=== PATIENT | female | born 1995 | race American Indian/Alaskan Native ===

== ENCOUNTER 2022-01-08 19:29 | Emergency (ER) | payer OTHER ==
[2022-01-08 19:43] VITALS: BP 117/59
== END 2022-01-08 20:55 | disposition left against medical advice (07) ==
LOC: ED 19:29
DX: Z04.1 Encounter for examination and observation following transport accident (principal); Z53.21 Procedure and treatment not carried out due to patient leaving prior to being seen by health care provider; V87.7XXA Person injured in collision between other specified motor vehicles (traffic), initial encounter; Y93.89 Activity, other specified; Y92.488 Other paved roadways as the place of occurrence of the external cause; Y99.8 Other external cause status

== ENCOUNTER 2022-01-13 08:33 | Emergency (ER) | payer OTHER ==
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
[2022-01-13] MEDS ORDERED: ACETAMINOPHEN 500 MG TAB PO ONE (12:05)
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
[2022-01-13 12:47] VITALS: BP 118/68
== END 2022-01-13 12:47 | disposition home or self-care (01) ==
LOC: ED 08:33
DX: M54.9 Dorsalgia, unspecified (principal); V87.7XXA Person injured in collision between other specified motor vehicles (traffic), initial encounter; Y93.89 Activity, other specified; Y92.488 Other paved roadways as the place of occurrence of the external cause; Y99.8 Other external cause status
CPT/HCPCS: 72100; 99283

== ENCOUNTER 2022-01-17 21:15 | Emergency (ER) | payer OTHER ==
[2022-01-17 21:45] VITALS: BP 95/54
[2022-01-18] MEDS ORDERED: dexAMETHasone 4 MG/ML VIAL PO ONE (07:50)
--- NOTE | 2022-01-18 08:47 | Emergency Department Report ---
ED Shortness of Breath HPI - General Chief Complaint: Dyspnea/Respdistress Stated Complaint: SOB Time Seen by Provider: 01/18/22 07:39 Source: patient Mode of arrival: Ambulatory Limitations: No Limitations - History of Present Illness Initial Comments: 26-year-old black female with no past medical history presents to the emergency department for evaluation of 2-week history of intermittent shortness of breath. She states that during the day she will just all of a sudden have shortness of breath unprovoked by anything that she can determine and then at night she feels short more shortness of breath that at times awakes her out of her sleep. She states that it also feels funny when she is trying to breathe out of her nose. She states over the past few days she has noted that sometimes she will have shortness of breath and feel like her heart is palpitating when she walks up and down stairs. She denies chest pain, nausea, vomiting, dizziness, dysuria, diaphoresis, and fever. She states that she has had persistent runny nose and it feels like she is swallowing something in the back of her throat all the time. MD Complaint: shortness of breath -: Gradual, week(s) (2) Worsens With: lying flat, other (Walking upstairs) Associated Symptoms: cough Treatments Prior to Arrival: none - Related Data Home Oxygen Therapy: No Previous Rx's Medication Instructions Recorded Last Taken Type Cyclobenzaprine [Flexeril] 10 mg PO TID PRN #10 tablet 01/13/22 Unknown Rx Ibuprofen [Motrin] 800 mg PO Q8HR PRN #30 tablet 01/13/22 Unknown Rx Allergies Allergy/AdvReac Type Severity Reaction Status Date / Time No Known Allergies Allergy Verified 01/08/22 19:45 ED Review of Systems ROS: Stated complaint: SOB Other details as noted in HPI Comment: All other systems reviewed and negative Constitutional: denies: chills, fever, malaise, weakness ENT: congestion Respiratory: cough, shortness of breath, SOB with exertion, SOB at rest. denies: orthopnea, stridor, wheezing Cardiovascular: palpitations, dyspnea on exertion. denies: chest pain, orthopnea, edema, syncope, paroxysmal nocturnal dyspnea Gastrointestinal: denies: abdominal pain, nausea, vomiting Genitourinary: denies: urgency, dysuria Musculoskeletal: denies: back pain Skin: denies: rash, lesions Neurological: denies: headache, weakness Psychiatric: denies: anxiety, depression ED Past Medical Hx - Past Medical History Previous Medical History?: No - Surgical History Past Surgical History?: No - Social History Smoking Status: Never Smoker - Medications Home Medications: Home Medications Medication Instructions Recorded Confirmed Last Taken Type Cyclobenzaprine [Flexeril] 10 mg PO TID PRN #10 tablet 01/13/22 Unknown Rx Ibuprofen [Motrin] 800 mg PO Q8HR PRN #30 tablet 01/13/22 Unknown Rx ED Physical Exam - General Limitations: No Limitations General appearance: alert, in no apparent distress - Head Head exam: Present: atraumatic, normocephalic - Eye Eye exam: Present: normal appearance. Absent: scleral icterus, conjunctival injection, periorbital swelling, periorbital tenderness - ENT ENT exam: Absent: normal exam (Bilateral nasal mucosal edema), normal orophraynx (Erythema noted to posterior oropharynx) - Expanded ENT Exam Expanded Throat exam: Negative: tonsillar erythema, tonsillomegaly, tonsillar exudate, R peritonsillar mass, L peritonsillar mass - Neck Neck exam: Present: normal inspection, full ROM. Absent: tenderness, lymphadenopathy - Respiratory Respiratory exam: Present: normal lung sounds bilaterally. Absent: respiratory distress, wheezes, rales, rhonchi, stridor, chest wall tenderness - Cardiovascular Cardiovascular Exam: Present: regular rate, normal heart sounds - GI/Abdominal GI/Abdominal exam: Present: soft, normal bowel sounds. Absent: distended, tenderness, guarding, rebound, rigid - Extremities Exam Extremities exam: Present: normal inspection, full ROM, normal capillary refill. Absent: tenderness, pedal edema, joint swelling, calf tenderness - Back Exam Back exam: Present: normal inspection. Absent: CVA tenderness (R), CVA tenderness (L), vertebral tenderness - Neurological Exam Neurological exam: Present: alert, oriented X3, CN II-XII intact, normal gait, reflexes normal. Absent: motor sensory deficit - Psychiatric Psychiatric exam: Present: normal affect, normal mood - Skin Skin exam: Present: warm, dry, intact, normal color ED Course Vital Signs 01/17/22 21:39 Temperature 98.5 F Pulse Rate 78 Respiratory 14 Rate Blood Pressure 95/54 Blood Pressure 99/54 [Left] O2 Sat by Pulse 100 Oximetry ED Medical Decision Making - Medical Decision Making 26-year-old black female with no past medical history presents to the emergency department for evaluation of 2-week history of intermittent shortness of breath. She states that during the day she will just all of a sudden have shortness of breath unprovoked by anything that she can determine and then at night she feels short more shortness of breath that at times awakes her out of her sleep. She states that it also feels funny when she is trying to breathe out of her nose. She states over the past few days she has noted that sometimes she will have shortness of breath and feel like her heart is palpitating when she walks up and down stairs. She denies chest pain, nausea, vomiting, dizziness, dysuria, diaphoresis, and fever. She states that she has had persistent runny nose and it feels like she is swallowing something in the back of her throat all the time. Physical exam noted to have signs of sinusitis. Patient states that she is concerned about blood pressure, blood pressure repeated and within normal limits, and patient has not had any symptoms of hypotension. Patient has mother on FaceTime mother very belligerent and demanding. Patient states that she is unsure as to whether or not she wants anything done and per her mother she has decided to leave AGAINST MEDICAL ADVICE without having ordered tests. 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 Critical care attestation.: If time is entered above; I have spent that time in minutes in the direct care of this critically ill patient, excluding procedure time. ED Disposition Clinical Impression: Left against medical advice Disposition: 07 LEFT AGAINST MEDICAL ADVICE Is pt being admited?: No Condition: Stable
== END 2022-01-18 08:56 | disposition left against medical advice (07) ==
LOC: ED 21:15
DX: R06.02 Shortness of breath (principal)
CPT/HCPCS: 99282; J1100

== ENCOUNTER 2022-04-07 14:35 | Emergency (ER) | payer BC, OTHER ==
[2022-04-07 14:54] VITALS: BP 123/49
[2022-04-07] MEDS ORDERED: TETRACAINE 0.5% OPHTH SOLN 4ML OU ONE (15:33)
[2022-04-07] MEDS ORDERED: SODIUM CHLORIDE 0.9% 500 ML 500 ML IV SCH (15:33)
[2022-04-07] MEDS ORDERED: FLUORESCEIN 1 MG STRIP OP ONE (15:33)
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
[2022-04-07] MEDS ORDERED: ERYTHROMYCIN 5 MG/1 GM OPHTH OINT OU ONE ×2 (16:00→17:30)
== END 2022-04-07 17:14 | disposition home or self-care (01) ==
LOC: ED 14:35
DX: T15.91XA Foreign body on external eye, part unspecified, right eye, initial encounter (principal); H10.9 Unspecified conjunctivitis; Z79.899 Other long term (current) drug therapy; X58.XXXA Exposure to other specified factors, initial encounter; Y93.89 Activity, other specified; Y92.89 Other specified places as the place of occurrence of the external cause; Y99.8 Other external cause status
CPT/HCPCS: 96360; 99283; 99284